=== PATIENT | male | born 1990 | race Caucasian/White ===

== ENCOUNTER → 2016-04-01 | Outpatient (REF) ==
[~2016-04-01] MED LIST: BACTRIM DS 8001 TAB PO; CELEXA 20MG20 MG/TAB PO; CEPHALEXIN500 M1 PO; CIPRO 250MG TA250 MG PO; NO HOME MEDICATIONS; NORCO 325 MG-51 TAB PO; PEN-VEE K500 MG PO; PRILOSEC 20MG20 MG PO; RITE AID LICE T59 ML TP; ULTRAM 50MG TAB50 MG PO
[2016-04-01 16:15] LABS: THYROID STIMULATING HORMONE 0.993 uIU/mL (0.465-4.680)
[2016-04-06 17:29] LABS: THYROXINE (T4)-TOTAL 8.7 ug/dL (5.5-11.0)
== END ==
LOC: ZLAB.WCH 15:10
PROVIDERS: General Practice
DX: Z01.89 Encounter for other specified special examinations (principal)